=== PATIENT | male | born 1990 | race Two or more races ===

== ENCOUNTER 2019-07-01 12:17 | Emergency (ER) | payer SELFPAY ==
[~2019-07-01] VITALS: Ht 167.6 cm; Wt 55.8 kg
[2019-07-01 12:22] VITALS: BP 122/67
--- NOTE | 2019-07-01 14:57 | REP ---
SCROTAL ULTRASOUND: Real-time sonographic evaluation of scrotum and contents performed. Testicles are normal in size and echotexture, right testicle measuring 3.7 x 1.7 x 2.5 cm and left testicle 3.8 x 1.9 x 2.3 cm. There is no testicular mass or torsion. Blood flow is seen in each testicle with duplex Doppler evaluation. A right epididymal cyst contains thin septations and measures 4.0 x 2.2 x 3.9 cm. IMPRESSION: Cyst right epididymis with a maximum diameter of 4 cm. No testicular mass or torsion. Electronically Signed by Lan Fish MD 07/01/2019 04:09 P
--- NOTE | 2019-07-01 14:59 | REP ---
INGUINAL ULTRASOUND: Real-time sonographic evaluation of the inguinal canal is performed at rest and with Valsalva maneuver. There is no evidence of inguinal hernia bilaterally. No intraperitoneal contents enter the inguinal canals at rest or with Valsalva maneuver. IMPRESSION: No sonographic evidence of inguinal hernia bilaterally. Electronically Signed by Lan Fish MD 07/01/2019 04:09 P
[2019-07-01] MEDS ORDERED: IBUP-1022 PO (15:25)
[2019-07-01] MEDS ORDERED: DOXY100C37 PO (15:25)
[2019-07-01 15:38] LABS: CHLAMYDIA DNA AMPLIFICATION NEGATIVE (NEGATIVE); GC DNA AMPLIFICATION NEGATIVE (NEGATIVE)
--- NOTE | 2019-07-05 20:02 | ED PDOC ---
Post-Departure Follow-Up scrotal us faxed to dr moss for fu Dung Santiago MD July 05, 2019 20:02
== END 2019-07-01 15:44 | disposition home or self-care (01) ==
LOC: M ED 12:17
DX: N45.2 Orchitis (principal)

== ENCOUNTER → 2019-07-21 | Outpatient (REF) | payer SELFPAY ==
[~2019-07-21] MED LIST: DOXY100C37 PO; IBUP-1022 PO
== END ==
LOC: M LAB REF 15:49
PROVIDERS: ATTEND Physician Assistant
DX: Z20.828 Contact with and (suspected) exposure to other viral communicable diseases (principal)

== ENCOUNTER → 2019-08-12 | Outpatient (REF) | payer SELFPAY | LOC: M LAB REF 10:04 | PROVIDERS: ATTEND Nurse Practitioner Family | DX: Z20.828 Contact with and (suspected) exposure to other viral communicable diseases (principal); Z11.59 Encounter for screening for other viral diseases ==

== ENCOUNTER → 2019-08-20 | Outpatient (CLI) | payer SELFPAY | LOC: M LABSMTC 09:38 | PROVIDERS: ATTEND Anesthesiology | DX: Z03.818 Encounter for observation for suspected exposure to other biological agents ruled out (principal); Z11.59 Encounter for screening for other viral diseases ==

== ENCOUNTER 2019-08-24 06:01 | Day surgery (SDC) | payer SELFPAY ==
[~2019-08-24] VITALS: Ht 167.6 cm; Wt 53.9 kg
[2019-08-24] MEDS ORDERED: ceFAZolin SOD 2 GM in IV 1 EA IV ONE (07:00)
[2019-08-24] MEDS ORDERED: propofoL 200 MG/20 ML VIAL As Ordered ONE (07:11)
[2019-08-24] MEDS ORDERED: fentaNYL 100 MCG/2 ML INJECTION (J3010) As Ordered ONE (07:11)
[2019-08-24] MEDS ORDERED: MIDAZOLAM INJ 2MG/2ML VIAL (J2250 PER 1MG) As Ordered ONE (07:11)
[2019-08-24] MEDS ORDERED: dexameTHASONE 4 MG/ML 1ML VIAL (J1100 PER 1MG) As Ordered ONE (07:11)
[2019-08-24] MEDS ORDERED: LIDOCAINE 2% 100MG/5ML SDV (FOR ANES.) As Ordered ONE (07:11)
[2019-08-24] MEDS ORDERED: ONDANSETRON 4MG/2ML VIAL As Ordered ONE (07:11)
[2019-08-24] MEDS ORDERED: BACITRACIN OINTMENT 30GM TUBE As Ordered ONE (07:14)
[2019-08-24] MEDS ORDERED: BUPIVACAINE HCL 0.25% 30ML VIAL As Ordered ONE (07:15)
[2019-08-24] MEDS ORDERED: LIDOCAINE 1% SDV 30ML VIAL As Ordered ONE (07:15)
[2019-08-24] MEDS ORDERED: ACETAMINOPHEN 1000MG 100ML IV BTL (OFIRMEV) (J0131 PER 10MG) As Ordered ONE (07:58)
[2019-08-24] MEDS ORDERED: KETOROLAC 60MG 2ML VIAL As Ordered ONE (07:58)
[2019-08-24] MEDS ORDERED: LR 1,000 ML IV SCH (09:45)
[2019-08-24] MEDS ORDERED: fentaNYL 100 MCG/2 ML INJECTION (J3010) IV PRN (09:45)
[2019-08-24] MEDS ORDERED: PERCOCET 5MG/325MG TAB PO PRN (09:45)
[2019-08-24] MEDS ORDERED: oxyCODONE 5MG TAB PO PRN (09:45)
[2019-08-24 12:55] VITALS: BP 129/72
--- NOTE | 2019-08-30 13:03 | RO ---
DATE OF PROCEDURE: 08/24/2019 PREPROCEDURE DIAGNOSIS: Right epididymal cyst. POSTPROCEDURE DIAGNOSIS: Right epididymal cyst. OPERATIVE PROCEDURE: Removal of right epididymal cyst, right scrotal exploration. SURGEON: Srinivas Dumont MD DIESEL ENGINE FITTER: Lynsey Riggs NP ANESTHESIA: General. OPERATIVE INDICATIONS: This is a 28-year-old male who has a 4 cm painful right epididymal cyst. He was brought to the operating room today for treatment. DESCRIPTION OF PROCEDURE: The patient was brought to the operating room, and general anesthesia was induced. Prophylactic antibiotics were infused. He was then placed in supine position, and prepped and draped in the usual sterile fashion. At this point, an approximately 3-4 cm transverse incision was made over the right hemiscrotum. I then dissected down through the scrotal wall layers. The testicle was delivered outside of the right hemiscrotum. The tunica vaginalis was opened. Once this was done, the right epididymal cyst was carefully dissected using electrocautery. We kept dissecting until it was attached to the epididymis only by a stalk. The stalk was then ligated using a #3-0 Vicryl suture and then the cyst was excised. The cyst was then handed off and sent for pathologic analysis. At this point, we checked for hemostasis and any areas of bleeding were controlled with electrocautery. Once satisfied with hemostasis, we confirmed that there was no damage to the vas deferens or any testicular blood supply. That did not appear to be the case. The testicle appeared healthy and normal. The testicle was then delivered back inside the right hemiscrotum in its normal anatomic position. The dartos muscle was then closed with running #3-0 Vicryl suture. The skin was then closed with interrupted #2-0 chromic suture. Dressings were then applied, and this marked conclusion of procedure. The patient was then awakened from anesthesia and transported to recovery room in stable condition. ESTIMATED BLOOD LOSS: 5 mL. COMPLICATIONS: None. SPECIMENS: Right epididymal cyst. PLAN: The patient will followup in the clinic in a few weeks for a postoperative visit.
== END 2019-08-24 13:20 | disposition home or self-care (01) ==
LOC: M SDC 06:01
PROVIDERS: ATTEND Urology
DX: N50.3 Cyst of epididymis (principal)
CPT/HCPCS: 54840; 88305; J0131; J0690; J1100; J1885; J2250; J2405; J3010

== ENCOUNTER → 2020-08-30 | Outpatient (REF) | payer SELFPAY ==
[~2020-08-30] MED LIST changes: -DOXY100C37 PO; +DOXY1CAP62 PO
[2020-08-30 14:31] LABS: APPEARANCE, URINE CLEAR (CLEAR); BACTERIA, URINE AUTO NEGATIVE (NEGATIVE); BILIRUBIN, URINE AUTO NEGATIVE (NEGATIVE); BLOOD, URINE BLOOD 1+ (NEGATIVE); COLOR, URINE STRAW (YELLOW); GLUCOSE, URINE (UA) AUTO NEGATIVE (NEGATIVE); KETONE, URINE AUTO NEGATIVE (NEGATIVE); LEUKOCYTE ESTERASE, URINE AUTO NEGATIVE (NEGATIVE); NITRITE, URINE AUTO NEGATIVE (NEGATIVE); PROTEIN, URINE AUTO NEGATIVE (NEGATIVE); RBC, URINE AUTO 0 /HPF (0-3); SPECIFIC GRAVITY URINE AUTO 1.011 (1.002-1.035); SQUAMOUS EPITHELIAL CELL UR AU 0 /HPF (0-6); UROBILINOGEN, URINE AUTO 0.2 mg/dL (0.0-2.0); WBC, URINE AUTO 1 /HPF (0-3)
[2020-08-30 16:15] LABS: GC DNA AMPLIFICATION NEGATIVE (NEGATIVE)
== END ==
LOC: M SMT 13:01
PROVIDERS: ATTEND Nurse Practitioner Family
DX: N50.819 Testicular pain, unspecified (principal)

== ENCOUNTER → 2020-09-11 | Outpatient (CLI) | payer SELFPAY ==
--- NOTE | 2020-09-12 09:46 | REP ---
INDICATION: TESTICULAR PAIN. COMPARISON: 07/01/2019. TECHNIQUE: Real-time sonographic evaluation of scrotum and contents performed. FINDINGS: The testicles are normal in size and echotexture, right testicle measuring 4.2 x 1.7 x 2.7 cm and left testicle 4.0 x 1.6 x 2.5 cm. No evidence of testicular mass or torsion. Blood flow is seen in each testicle with duplex Doppler evaluation. There is a 3 mm cyst in the head of the right epididymis. No other significant findings are seen. IMPRESSION: No testicular mass or torsion. 3 mm cyst is seen in the head of the right epididymis. <Electronically signed by Lan Fish > 09/12/20 [id number]
== END ==
LOC: M RAD 14:53
PROVIDERS: ATTEND Nurse Practitioner Family
DX: N50.819 Testicular pain, unspecified (principal); N50.3 Cyst of epididymis

== ENCOUNTER → 2020-09-17 | Outpatient (REF) | payer SELFPAY ==
[~2020-09-17] MED LIST changes: +DOXY-443 PO; -DOXY1CAP62 PO
[2020-09-17 10:22] LABS: SEMEN APPEARANCE OPAQUE (OPAQUE); SEMEN VISCOSITY VISCOUS (LIQUID); SEMEN VOLUME 4.1 ml (2.0-5.0); SPERM CONCENTRATION 51.7 M/ml (>=15.0); WBC CONCENTRATION >1 M/ml (<=1 M/ml)
== END ==
LOC: M SMT 10:03
PROVIDERS: ATTEND Urology
DX: R86.9 Unspecified abnormal finding in specimens from male genital organs (principal)